=== PATIENT | male | born 1945 | race Caucasian/White ===

== ENCOUNTER 2017-12-18 11:03 | Emergency (ER) | payer MEDICARE, BC ==
[2017-12-18] MEDS ORDERED: NITROGLYCERIN SL 0.4 MG TABLET SL STA (12:56)
--- NOTE | 2017-12-18 12:56 | ED Physician Documentation ---
PD HPI CHEST PAIN - Stated complaint Stated Complaint: TINGLE IN BOTH ARMS/DIZZY - Chief complaint Chief Complaint: Cardiac - History obtained from History obtained from: Patient - History of Present Illness Timing - onset: Today (this morning about 6 am.) Timing - onset during: Rest (has just awoken from sleep.) Timing - duration: Minutes (lasted about 15-20 minutes at worst level, and then has been undulated to some degree through the morning. Improving after arrival here in ED.) Timing - details: Abrupt onset, Waxing and waning Quality: Pressure, Tightness, Aching (feeling it mostly in the backs of his shoulders and not really in the chest itself. This is similar location and feeling to heart pain he had had prior to stent placement about 4 years ago.) Location: Left shoulder/arm, Right shoulder/arm Radiation: Neck, Back Improved by: Other (he did not try his NTG that he has.). No: Rest Associated symptoms: Shortness of air. No: Diaphoresis, Nausea, Feeling faint / dizzy Similar symptoms before: Diagnosis (these symptoms are c/w prior angina/heart pains several years ago.), Other (he has had these pains in the mornings intermittently for the past 2-3 weeks. Has not noted it with exertion per se. Has had some general fatigue.) Recently seen: Not recently seen Review of Systems Constitutional: denies: Fever, Chills Nose: denies: Rhinorrhea / runny nose, Congestion Throat: denies: Sore throat Respiratory: denies: Cough GI: denies: Abdominal Pain, Nausea, Vomiting, Diarrhea : denies: Dysuria, Frequency Skin: denies: Rash, Lesions Neurologic: reports: Generalized weakness. denies: Focal weakness, Numbness, Near syncope, Syncope, Headache PD PAST MEDICAL HISTORY - Past Medical History Cardiovascular: Hypertension, High cholesterol, Coronary artery disease, NE Respiratory: None Neuro: None Endocrine/Autoimmune: Type 2 diabetes GI: GERD : None HEENT: Chronic hearing loss Psych: None Musculoskeletal: Osteoarthritis, Other Derm: None - Past Surgical History Past Surgical History: Yes Cardiovascular: CABG, Coronary stent - Present Medications Home Medications: Ambulatory Orders Medication Instructions Recorded Confirmed Aspirin [Aspir 81] 81 mg DAILY 09/01/15 12/18/17 Esomeprazole Magnesium [Nexium] 40 mg PO DAILY 09/01/15 12/18/17 Insulin Glargine,Hum.rec.anlog 34 units DAILY 09/01/15 12/18/17 [Lantus] Losartan/Hydrochlorothiazide 1 tab DAILY 09/01/15 12/18/17 [Losartan-Hctz 100-12.5 mg Tab] Metformin HCl [Glucophage] 1,000 mg PO BID 09/01/15 12/18/17 Metoprolol Succinate 50 mg PO DAILY 09/01/15 12/18/17 Sildenafil Citrate [Viagra] 1 tab DAILY 09/01/15 12/18/17 Simvastatin 40 mg PO DAILY 09/01/15 12/18/17 Tamsulosin HCl [Flomax] 0.4 mg PO DAILY 09/01/15 12/18/17 Trazodone HCl [Oleptro ER] 150 mg PO DAILY 09/01/15 12/18/17 Isosorbide Mononitrate ER [Imdur] 30 mg PO DAILY #10 tablet 12/18/17 - Allergies Allergies/Adverse Reactions: Allergies Allergy/AdvReac Type Severity Reaction Status Date / Time morphine Allergy Unknown Verified 12/18/17 11:31 - Social History Does the pt smoke?: Yes Smoking Status: Current every day smoker Does the pt have substance abuse?: No - Immunizations Immunizations are current?: Yes PD ED PE NORMAL - Vitals Vital signs reviewed: Yes - General General: Alert and oriented X 3, No acute distress, Well developed/nourished - HEENT HEENT: Ears normal, Pharynx benign - Neck Neck: Supple, no meningeal sign, No adenopathy - Cardiac Cardiac: RRR, No murmur - Respiratory Respiratory: Clear bilaterally - Abdomen Abdomen: Normal bowel sounds, Soft, Non tender, Non distended - Male Male : Deferred - Rectal Rectal: Deferred - Back Back: No CVA TTP - Derm Derm: Normal color, Warm and dry, No rash - Extremities Extremities: No deformity, No tenderness to palpate, Normal ROM s pain, No edema , No calf tenderness / cord - Neuro Neuro: Alert and oriented X 3, No motor deficit, Normal speech - Psych Psych: Normal mood, Normal affect Results - Vitals Vitals: Vital Signs - 24 hr 12/18/17 12/18/17 12/18/17 11:27 13:00 14:44 Temperature 36.5 C Heart Rate 32 L 56 L 67 Respiratory 16 18 18 Rate Blood Pressure 132/61 H 160/85 H 167/85 H O2 Saturation 96 96 96 12/18/17 14:59 Temperature Heart Rate 63 Respiratory 12 Rate Blood Pressure 152/88 H O2 Saturation 96 Oxygen O2 Source Room air - EKG (time done) 11:44 Rate: Rate (enter#) (58) Rhythm: NSR [place]: Normal Intervals: Normal DC QRS: Normal Ischemia: Normal ST segments. No: ST elevation c/w ischemia, ST depression - Labs Labs: Laboratory Tests 12/18/17 12/18/17 12/18/17 12:50 12:50 12:50 WBC 8.4 RBC 4.75 Hgb 15.1 Hct 44.0 MCV 92.7 MCH 31.9 H MCHC 34.4 RDW 13.6 Plt Count 216 MPV 8.1 Neut # 5.7 Lymph # 1.6 [place] # 0.5 Eos # 0.6 Baso # 0.1 Absolute Nucleated RBC 0.00 Nucleated RBC % 0.0 Sodium 137 Potassium 4.4 Chloride 98 L Carbon Dioxide 27 Anion Gap 12.0 BUN 15 Creatinine 0.8 Estimated GFR (MDRD) 95 Glucose 128 H Calcium 9.8 Magnesium 1.8 Total Bilirubin 1.1 H AST 24 ALT 25 Alkaline Phosphatase 55 Troponin I < 0.04 B-Natriuretic Peptide Total Protein 7.2 Albumin 4.4 Globulin 2.8 Albumin/Globulin Ratio 1.6 Lipase 17 L 12/18/17 12:50 WBC RBC Hgb Hct MCV MCH MCHC RDW Plt Count MPV Neut # Lymph # [place] # Eos # Baso # Absolute Nucleated RBC Nucleated RBC % Sodium Potassium Chloride Carbon Dioxide Anion Gap BUN Creatinine Estimated GFR (MDRD) Glucose Calcium Magnesium Total Bilirubin AST ALT Alkaline Phosphatase Troponin I B-Natriuretic Peptide 167 H Total Protein Albumin Globulin Albumin/Globulin Ratio Lipase - Rads (name of study) chest Radiology: Prelim report reviewed, EMP read contemporaneously (no acute process) PD MEDICAL DECISION MAKING - ED course Complexity details: reviewed results, considered differential (The symptoms are similar to anginal and heart pain he has had in the past. Blood tests and EKG did not show signs of acute heart injury. I talked with cardiology in [place] and they suggested M door. Also to increase his metoprolol although after discussing with them, I did notice his heart rate to be in the high 50s and so we will keep the beta maria guadalupe at the current dose. He is to follow-up with cardiology in [place] in the next few days, call for an appointment.), d /w patient Departure - Departure Disposition: 01 Home, Self Care Clinical Impression: Anginal equivalent Arm pain Qualifiers: Laterality: bilateral Qualified Code(s): M79.601 - Pain in right arm Condition: Stable Record reviewed to determine appropriate education?: Yes Instructions: ED Chest Pain Angina Stable Follow-Up: Justin Leal MD [Primary Care Provider] - Prescriptions: Isosorbide Mononitrate ER [Imdur] 30 mg PO DAILY #10 tablet Comments: Drink lots of fluids. Continue usual medications. Add Imdur which is a long- acting nitrate daily. This is presuming your symptoms are angina. Hold your sildenafil. Call the cardiology office for an appointment presumably this week or early next week. Return if persistent or worsening symptoms. We will presume this is some anginal symptoms. There is no signs of heart attack or heart failure at this time. Discharge Date/Time: 12/18/17 15:25
--- NOTE | 2017-12-18 13:02 | XRAY Report ---
EXAM: CHEST RADIOGRAPHY EXAM DATE: 12/18/2017 12:47 PM. CLINICAL HISTORY: Dizzy, chest pain. Weakness. COMPARISON: Chest x-ray 09/01/2015. TECHNIQUE: 2 views. FINDINGS: Lungs/Pleura: No focal consolidation evident. No pleural effusion. No pneumothorax. Mild left basilar atelectasis. Mildly diminished lung volumes. Mediastinum: Borderline cardiomegaly. Prior CABG. Atherosclerotic aortic calcifications. Prior sterno sumi. Other: None. IMPRESSION: No consolidation evident. [facility] Referring Provider Line: [phone] SITE ID: [id number]
--- NOTE | 2017-12-18 13:02 | XRAY Preliminary Report ---
Exam: XR CHEST 2 VIEW X-RAY IMPRESSION: No consolidation evident. [facility] SITE ID: [id number]
[2017-12-18 13:06] LABS: BASOPHILS # (AUTO) 0.1 10^3/uL (0.0-0.1); BASOPHILS % (AUTO) 0.8 %; EOSINOPHILS # (AUTO) 0.6 10^3/uL (0.0-0.7); EOSINOPHILS % (AUTO) 7.1 %; HGB - HEMOGLOBIN 15.1 g/dL (14.0-18.0); LYMPHOCYTES # (AUTO) 1.6 10^3/uL (1.5-3.5); LYMPHOCYTES % (AUTO) 18.9 %; MEAN CORPUSCULAR HEMOGLOBIN 31.9 pg (27.0-31.0); MEAN CORPUSCULAR HGB CONC 34.4 g/dL (32.0-36.0); MEAN CORPUSCULAR VOLUME 92.7 fL (80.0-94.0); MEAN PLATELET VOLUME 8.1 fL (7.4-11.4); MONOCYTES # (AUTO) 0.5 10^3/uL (0.0-1.0); MONOCYTES % (AUTO) 5.6 %; NEUTROPHILS # (AUTO) 5.7 10^3/uL (1.5-6.6); NEUTROPHILS % (AUTO) 67.6 %; PLT - PLATELET COUNT 216 10^3/uL (130-450); RED BLOOD COUNT 4.75 10^6/uL (4.70-6.10); RED CELL DISTRIBUTION WIDTH 13.6 % (12.0-15.0); WHITE BLOOD COUNT 8.4 x10^3/uL (4.8-10.8)
[2017-12-18 13:18] LABS: ALBUMIN 4.4 g/dL (3.2-5.5); ALBUMIN/GLOBULIN RATIO 1.6 (1.0-2.2); BILIRUBIN,TOTAL 1.1 mg/dL (0.2-1.0); CALCIUM 9.8 mg/dL (8.5-10.3); CREATININE 0.8 mg/dL (0.6-1.2); MAGNESIUM 1.8 mg/dL (1.7-2.8); TOTAL PROTEIN 7.2 g/dL (6.7-8.2)
[2017-12-18] MEDS ORDERED: ISOSORBIDE MONONITRATE ER 30 MG TABLET PO STA (14:53)
[2017-12-18 15:00] VITALS: BP 152/88
== END 2017-12-18 15:25 | disposition home or self-care (01) ==
LOC: ED 11:03
DX: I25.118 Atherosclerotic heart disease of native coronary artery with other forms of angina pectoris (principal); M79.601 Pain in right arm; E78.00 Pure hypercholesterolemia, unspecified; R94.31 Abnormal electrocardiogram [ECG] [EKG]; I25.2 Old myocardial infarction; I10 Essential (primary) hypertension; E11.9 Type 2 diabetes mellitus without complications; F17.200 Nicotine dependence, unspecified, uncomplicated; Z79.4 Long term (current) use of insulin; Z95.1 Presence of aortocoronary bypass graft; Z95.5 Presence of coronary angioplasty implant and graft
CPT/HCPCS: 36415; 71046; 80053; 83690; 83735; 83880; 84484; 85025; 93005; 99283; 99284; A9270

== ENCOUNTER 2018-06-05 18:43 | Outpatient (CLI) | payer MEDICARE, BC ==
--- NOTE | 2018-06-05 22:49 | Ultrasound Report ---
Procedure Date: 06/05/2018 Accession Number: [id number] / [id number] Procedure: US - Ankle Brachial Index CPT Code: FULL RESULT: EXAM: BILATERAL ABIS EXAM DATE: 06/05/2018 07:15 PM. CLINICAL HISTORY: TYPE 2 DIABETES MELLITUS WITH UNSPECIFIED COMPLICA. COMPARISON: None. TECHNIQUE: Real-time scanning, with assisted sales representative static images obtained. FINDINGS: GIBSON on the right is abnormal, measuring 0.7. GIBSON on the left is normal, measuring 0.9. Waveforms of the right ankle are monophasic, with triphasic waveforms of the left ankle. IMPRESSION: Abnormal right GIBSON and waveforms, compatible with peripheral vascular disease. Normal left GIBSON. [facility]
== END 2018-06-05 18:44 | disposition home or self-care (01) ==
LOC: DI 18:43
PROVIDERS: ATTEND Family Medicine
DX: M79.661 Pain in right lower leg (principal); E11.51 Type 2 diabetes mellitus with diabetic peripheral angiopathy without gangrene; E78.5 Hyperlipidemia, unspecified
CPT/HCPCS: 93922

== ENCOUNTER 2018-10-18 08:08 | Outpatient (CLI) | payer MEDICARE, BC ==
--- NOTE | 2018-10-18 10:21 | Ultrasound Report ---
Reason: PVD Procedure Date: 10/18/2018 Accession Number: [id number] / [id number] Procedure: US - Duplex Lwr Ext Arterial Bilat CPT Code: FULL RESULT: EXAM: Bilateral Lower Extremity Arterial Doppler Ultrasound EXAM DATE: 10/18/2018 09:16 AM. CLINICAL HISTORY: PVD. COMPARISON: ANKLE BRACHIAL INDEX 06/05/2018 7:15 PM. TECHNIQUE: Real-time sonographic vascular imaging was performed by the senior technical business analyst, utilizing color-flow, Doppler flow, and spectral analysis. Multiple apprenticeship training representative static images were saved for review. FINDINGS: Right lower extremity spectral duplex interrogation demonstrates normal triphasic waveforms in the common femoral and profunda femoris artery with preserved brisk systolic upstrokes in the proximal and early mid right SFA. 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 Tardus parvus flow is then seen in the right popliteal artery above and below the knee with continued tardus parvus flow detected in the posterior tibial, peroneal and anterior tibial arteries as well as the dorsalis pedis artery. Left lower extremity spectral duplex demonstrates excellent triphasic inflow and outflow with triphasic perfusion to the ankle and triphasic flow preserved in the dorsalis pedis artery. Please do not transcribe the waveforms thank you Transcription to insert worksheet here. IMPRESSION: Right: Good triphasic inflow. Mid to distal SFA occlusion with reconstitution at the level of the [id number] popliteal artery and patent 3 vessel flow to the ankle with preserved flow in the dorsalis pedis artery. Left: Widely patent inflow and outflow. [facility] The above findings of occlusive focal SFA disease were discussed with ALKA Velásquez by Dr. Davy Hanley at 10:19 hrs on 10/18/18.
== END 2018-10-18 08:09 | disposition home or self-care (01) ==
LOC: DI 08:08
PROVIDERS: ATTEND Family Medicine
DX: I70.92 Chronic total occlusion of artery of the extremities (principal)
CPT/HCPCS: 93925

== ENCOUNTER 2020-05-12 13:50 | Outpatient (CLI) | payer MEDICARE, BC ==
--- NOTE | 2020-05-12 14:57 | XRAY Report ---
PROCEDURE: Chest 2 View X-Ray INDICATIONS: contusion L chest TECHNIQUE: 2 view(s) of the chest. COMPARISON: None. FINDINGS: Surgical changes and devices: Changes of median sternotomy for CABG. Lungs and pleura: No pleural effusions or pneumothorax. Lungs are clear. Mediastinum: Mediastinal contours are normal. Heart size is normal. Aortic atherosclerosis. Bones and chest wall: No suspicious bony abnormalities. Soft tissues appear unremarkable. IMPRESSION: No acute cardiopulmonary process demonstrated radiographically. Reviewed by: Efren Cervantes MD on 05/12/2020 2:55 PM PDT Approved by: Efren Cervantes MD on 05/12/2020 2:55 PM PDT Station ID: [id number]
--- NOTE | 2020-05-12 17:28 | XRAY Report ---
PROCEDURE: Ribs 2 View LT INDICATIONS: Left chest contusion; evaluation for fracture TECHNIQUE: 4 views of the left ribs were acquired. COMPARISON: None FINDINGS: There is no visible pleural effusion or findings of pneumothorax. Included lungs are clear. Median st ernotomy changes noted. There is no plain radiographic evidence of rib fracture. IMPRESSION: No plain radiographic evidence of rib fracture. Please note that nondisplaced rib fractures are frequ ently radiographically occult. Reviewed by: Efren Cervantes MD on 05/12/2020 5:27 PM PDT Approved by: Efren Cervantes MD on 05/12/2020 5:27 PM PDT Station ID: [id number]
== END 2020-05-12 13:51 | disposition home or self-care (01) ==
LOC: DI.N 13:50
PROVIDERS: ATTEND Family Medicine
DX: S20.212A Contusion of left front wall of thorax, initial encounter (principal)
CPT/HCPCS: 71046

== ENCOUNTER 2021-05-11 12:47 | Outpatient (CLI) | payer MEDICARE, BC ==
--- NOTE | 2021-05-24 14:36 | CT Report ---
PROCEDURE: SOFT TISSUE NECK WO INDICATIONS: CHRONIC THROAT PAIN TECHNIQUE: Non-contrast 3.0 mm axial sections acquired from the sella to the aortic arch. Additiona l oblique axial 3.0 mm sections acquired through the pharynx. 3 mm thick coronal reformats were gene rated. For radiation dose reduction, the following was used: automated exposure control, adjustment of mA and/or kV according to patient size. COMPARISON: None. FINDINGS: Image quality: Excellent. Lymph nodes: No enlarged lymph nodes seen throughout the neck. Vessels: Atherosclerotic desiccation is noted in the origins of the internal carotid arteries which m ay cause significant narrowing. Neck spaces: The oropharynx, nasopharynx, and pharynx demonstrate no mucosal lesions. The vocal cor ds, false vocal cords, pyriform sinuses, epiglottis, vallecula, and tongue base all appear normal. Th ere is a 1.3 cm contained air locule adjacent to the lateral margin of the esophagus and the posterio r margin of the trachea which does not have a perceivable wall and likely represent either a small es ophageal or tracheal diverticulum. Glands: The parotid and submandibular glands appear normal, without stones. The thyroid is normal i n size and there are no incidental findings. Miscellaneous: Median sternotomy wires noted. Visualized brain and orbits appear normal. 7 mm subple ural nodule noted in the medial aspect of the right lung apex. Superficial soft tissues appear normal . Moderate-sized mucous retention cyst versus polyp noted in the right maxillary sinus. Spine degener ative disc disease and facet arthropathy are noted. IMPRESSION: 1. No mucosal-based mass. 2. No lymphadenopathy based on size criteria. 3. 1.2 cm cervical esophageal versus cervical tracheal diverticulum. 4. 7 mm right upper lobe nodule. Recommend follow-up CT scan in 6-12 months based on criteria outline d below. 5. Bilateral internal carotid artery atherosclerosis possibly causing significant stenosis. Recommend carotid Doppler ultrasound for additional evaluation. Fleischner Society criteria for lung nodule followup. Solid nodules Solitary nodule size: <6 mm * low risk patients: no follow-up needed * high risk patients: optional CT at 12 months Solitary nodule size: 6-8 mm * low risk patients: follow-up at 6-12 months, then consider further follow-up at 18-24 months * high risk patients: initial follow-up CT at 6-12 months and then at 18-24 months if no change Solitary nodule size: >8 mm * either low or high risk patients * consider follow-up CT at 3 months, and/or CT-PET, and/or biopsy Multiple nodules size: <6 mm * low risk patients: no routine follow-up * high risk patients: optional CT at 12 months Multiple nodules size: 6-8 mm * low risk patients: follow-up at 3-6 months, then consider further follow-up at 18-24 months * high risk patients: follow-up at 3-6 months, then at 18-24 months if no change Multiple nodules size: >8 mm * low risk patients: follow-up at 3-6 months, then consider further follow-up at 18-24 months * high risk patients: follow-up at 3-6 months, then at 18-24 months if no change Recommendations do not apply to lung cancer screening, patient's with immunosuppression or patients w ith known primary cancer. Reviewed by: Juanita Kraus MD, PhD on 05/11/2021 3:35 PM PDT Approved by: Juanita Kraus MD, PhD on 05/11/2021 3:35 PM PDT Station ID: [id number]
== END 2021-05-11 12:48 | disposition home or self-care (01) ==
LOC: DI 12:47
PROVIDERS: ATTEND Internal Medicine
DX: R91.1 Solitary pulmonary nodule (principal); I65.23 Occlusion and stenosis of bilateral carotid arteries; R93.89 Abnormal findings on diagnostic imaging of other specified body structures

== ENCOUNTER 2021-05-11 12:48 | Outpatient (CLI) | payer MEDICARE, BC ==
--- NOTE | 2021-05-11 15:44 | Ultrasound Report ---
PROCEDURE: Bladder INDICATIONS: LUTS,PVR TECHNIQUE: Sonographic assessment through the abdomen and pelvis targeting the urinary tract was perf ormed. COMPARISON: CT abdomen/pelvis 10/12/2015. FINDINGS: Survey scanning through the kidneys show no hydronephrosis or nephrolithiasis. Note is made of the bl adder that there is a bladder prevoid volume of 940 cc with bladder trabeculations and the postvoid r esidual was 827 cc. Prostate size is mildly enlarged at 3.3 x 4.7 x 5.4 cm. Bilateral ureteral jets c ould be seen. IMPRESSION: No hydronephrosis through the kidneys and also no nephrolithiasis is found but the bladder is abnorma lly dilated with prevoid bladder volume 940 cc and postvoid residual large at 827 cc. Bladder trabecu lation is present. The bladder may be dilated by prostatic enlargement. Reviewed by: Ramón Ibarra MD on 05/11/2021 3:42 PM PDT Approved by: Ramón Ibarra MD on 05/11/2021 3:42 PM PDT Station ID: [id number]
== END 2021-05-11 12:49 | disposition home or self-care (01) ==
LOC: DI 12:48
PROVIDERS: ATTEND Internal Medicine
DX: N32.89 Other specified disorders of bladder (principal); R91.1 Solitary pulmonary nodule; I65.23 Occlusion and stenosis of bilateral carotid arteries; R93.89 Abnormal findings on diagnostic imaging of other specified body structures

== ENCOUNTER 2024-04-20 12:34 | Outpatient (CLI) | payer MEDICARE, BC ==
--- NOTE | 2024-04-21 06:36 | Ultrasound Report ---
PROCEDURE: Duplex Ext Veins Left INDICATIONS: L LEG SWELLING TECHNIQUE: Real-time imaging, as well as color and pulse Doppler interrogation, were performed of the lower extr emity deep veins from the inguinal ligament to the popliteal fossa. Attempted visualization of the ca lf veins was performed. COMPARISON: None. FINDINGS: The deep veins are normally compressible, and free of intraluminal thrombus. Color and pu lse Doppler demonstrate normal phasic intraluminal flow. There is normal augmentation response to di stal compression maneuver. IMPRESSION: No deep venous thrombosis of the visualized lower extremity. Reviewed by: Aime Felix MD on 04/21/2024 6:35 AM PDT Approved by: Aime Felix MD on 04/21/2024 6:35 AM PDT Station ID: [id number]
--- NOTE | 2024-04-21 06:39 | Ultrasound Report ---
PROCEDURE: Arterial Duplex Lwr Ext LT INDICATIONS: L LEG SWELLING TECHNIQUE: Color and pulse Doppler interrogation was performed of the left lower extremity arterial system, with image documentation. COMPARISON: 10/18/2018 FINDINGS: Common femoral artery: 174 cm/sec, with triphasic flow. Deep femoral artery: 51 cm/sec, with monophasic flow. Proximal superficial femoral artery: 208 cm/sec, with triphasic flow. Mid superficial femoral artery: 157 cm/sec, with triphasic flow. Distal superficial femoral artery: 65 cm/sec, with triphasic flow. Popliteal artery: 97 cm/sec, with triphasic flow. Posterior tibial artery: 116 cm/sec, with triphasic flow. Anterior tibial artery/dorsalis pedis: 56/68 cm/sec, with triphasic flow. Givens-scale imaging description: Moderate atherosclerotic plaque. IMPRESSION: Moderate atherosclerotic plaque. Patent lower extremity vasculature without hemodynamically significa nt stenosis. Reviewed by: Aime Felix MD on 04/21/2024 6:38 AM PDT Approved by: Aime Felix MD on 04/21/2024 6:38 AM PDT Station ID: [id number]
== END 2024-04-20 12:35 | disposition home or self-care (01) ==
LOC: DI 12:34
PROVIDERS: ATTEND Student in an Organized Health Care Education/Training Program
DX: M79.89 Other specified soft tissue disorders (principal); I70.202 Unspecified atherosclerosis of native arteries of extremities, left leg